=== PATIENT | male | born 1990 | race African-American/Black ===

== ENCOUNTER 2017-12-22 12:15 | Emergency (ER) | payer MEDICAID ==
[~2017-12-22] VITALS: Ht 175.3 cm; Wt 6.5 kg
[2017-12-22 12:31] VITALS: BP 137/68
--- NOTE | 2017-12-22 12:37 | NUR ---
PT AMBULATES TO CHAIR C
--- NOTE | 2017-12-22 12:43 | NUR ---
PATIENT PRESENTS TO ED WITH C/O COUGH, SOB, MID STERNAL CP 7/10 X 1 WK WITH COUHING SMALL AMT OF BLOOD IN THE SPUTUM.DENIES N/V/D; SKIN IS PINK/WARM/DRY; AAOX4 WITH EVEN AND STEADY GAIT; HR EVEN AND REGULAR; PT DENIES ANY FEVER/NIGHT SWEATS/WEIGYT LOSSPATIENT POSITIONED FOR COMFORT; ER MD MADE AWARE OF PT STATUS.
--- NOTE | 2017-12-22 13:01 | NUR ---
went to xray accompanied by tech.
[2017-12-22 13:12] VITALS: BP 123/80
--- NOTE | 2017-12-22 13:12 | NUR ---
Patient discharged with v/s stable. Written and verbal after care instructions given and explained. Patient alert, oriented and verbalized understanding of instructions. Ambulatory with steady gait. All questions addressed prior to discharge. ID band removed. Patient advised to follow up with PMD. Rx of AZITHROMYCIN AND ALBUTEROL INHALATION given. Patient educated on indication of medication including possible reaction and side effects. Opportunity to ask questions provided and answered.
== END 2017-12-22 13:12 | disposition home or self-care (01) ==
LOC: MED 12:15
DX: J45.909 Unspecified asthma, uncomplicated (principal); J40 Bronchitis, not specified as acute or chronic; R03.0 Elevated blood-pressure reading, without diagnosis of hypertension; Z71.6 Tobacco abuse counseling
CPT/HCPCS: 71045; 99283